=== PATIENT | female | born 1985 | race Caucasian/White ===

== ENCOUNTER 2016-07-31 10:53 | Emergency (ER) | payer BC, OTHER ==
[~2016-07-31] VITALS: Ht 170.2 cm; Wt 140.0 kg
[~2016-07-31 10:53] MED LIST: ACET650S21 PO; CALC200T3 PO; DOCO200C3 PO; ONDA4TAB10 PO; SERT100T PO; SERT25TA PO
[2016-07-31] MEDS ORDERED: IBUPROFEN 200 MG TABLET ONE (11:50)
[2016-07-31] MEDS ORDERED: IBUPROFEN 200 MG TABLET PO ONE (12:00)
[2016-07-31 13:59] VITALS: BP 172/84
== END 2016-07-31 14:01 | disposition home or self-care (01) ==
LOC: ED 11:41
DX: I80.8 Phlebitis and thrombophlebitis of other sites (principal)

== ENCOUNTER 2018-04-11 04:53 | Emergency (ER) | payer BC, OTHER ==
[~2018-04-11] VITALS: Ht 165.1 cm; Wt 134.8 kg
[2018-04-11 04:54] VITALS: BP 128/82
--- NOTE | 2018-04-11 05:04 | NUR ---
PT AMBULATED TO ROOM WITH STEADY GAIT FROM TRIAGE.
--- NOTE | 2018-04-11 05:12 | NUR ---
PROVIDER TO BEDSIDE FOR PT EVAL COMPLETE. PT TO HAVE US TO R LEG. PT REPORTS OUTTER R LEG PAIN SINCE 0000 TONIGHT. PT REPORTS SHE HAD SURGERY X3 WEEKS AGO AND THINKS IT IS A "BLOOD CLOT." NO REDNESS, EDEMA, WARMNESS TO AREA. PT REPORTS PAIN IS ON THE SURFACE OF THE LEG AND IS TENDER TO THE TOUGH. PT A/OX4, BREATHING E/U. PT SO AT BEDSIDE. WILL MONITOR.
--- NOTE | 2018-04-11 05:49 | NUR ---
PT TO US.
--- NOTE | 2018-04-11 06:17 | NUR ---
PT IN ROOM RESTING IN BED, WARM BLANKET PROVIDED PER PT REQUEST. PT DENIES FURTHER NEEDS. WILL CONTINUE TO MONITOR.
--- NOTE | 2018-04-11 06:30 | NUR ---
PROVIDER TO BEDSIDE FOR UPDATE.
== END 2018-04-11 06:37 | disposition home or self-care (01) ==
LOC: ED 05:58
DX: D17.23 Benign lipomatous neoplasm of skin and subcutaneous tissue of right leg (principal); M79.651 Pain in right thigh
CPT/HCPCS: 99284

== ENCOUNTER 2018-11-04 12:15 | Emergency (ER) | payer OTHER ==
[~2018-11-04] VITALS: Ht 170.2 cm; Wt 121.5 kg
[2018-11-04 16:28] VITALS: BP 129/76
== END 2018-11-04 16:30 | disposition home or self-care (01) ==
LOC: ED 15:57
DX: O23.11 Infections of bladder in pregnancy, first trimester (principal); Z3A.08 8 weeks gestation of pregnancy; R11.2 Nausea with vomiting, unspecified
CPT/HCPCS: 36415; 76801; 80053; 81001; 84702; 85025; 87086; 99284

== ENCOUNTER 2019-01-30 09:20 | Inpatient (IN) | payer OTHER ==
[~2019-01-30] VITALS: Ht 165.1 cm; Wt 115.1 kg
[~2019-01-30 09:20] MED LIST changes: +ONDA4TAB7 PO; +PREN1TAB60 PO; +phenergan supp; +zofran
[2019-01-30] MEDS ORDERED: SODIUM CHLORIDE 0.9% 1,000 ML IV ONE (09:40)
[2019-01-30 10:17] LABS: BASOPHILS # (AUTO) 0.02 x10^3/uL (0-0.1); BASOPHILS % (AUTO) 0 % (0-1); EOSINOPHILS # (AUTO) 0.01 x10^3/uL (0-0.4); EOSINOPHILS % (AUTO) 0 % (1-7); LYMPHOCYTES # (AUTO) 1.25 x10^3/uL (1-3.4); LYMPHOCYTES % (AUTO) 16 % (22-44); MD NO; MEAN CORPUSCULAR HEMOGLOBIN 30.2 pg (27.0-34.8); MEAN CORPUSCULAR HGB CONC 33.5 g/dL (32.4-35.8); MEAN CORPUSCULAR VOLUME 90.1 fL (80-100); MEAN PLATELET VOLUME 8.8 fL (7.4-10.4); MONOCYTES # (AUTO) 0.25 x10^3/uL (0.2-0.8); MONOCYTES % (AUTO) 3 % (2-9); NEUTROPHILS # (AUTO) 6.39 x10^3/uL (1.8-6.8); NEUTROPHILS % (AUTO) 81 % (42-75); PLATELET COUNT 218 x10^3/uL (130-400); RED BLOOD COUNT 4.52 x10^6/uL (3.82-5.3); RED CELL DISTRIBUTION WIDTH 15.6 % (9.6-15.2)
[2019-01-30 10:29] LABS: ALBUMIN 2.8 g/dL (3.4-5.0); ANION GAP 10 mmol/L (5-15); CALCIUM 8.4 mg/dL (8.5-10.1); CHLORIDE 110 mmol/L (98-107); CREATININE 0.57 mg/dL (0.55-1.02)
[2019-01-30] MEDS ORDERED: ACETAMINOPHEN 500 MG TABLET PO ONE (10:30)
[2019-01-30] MEDS ORDERED: ONDANSETRON 2MG/ML, 2ML IVPush ONE (10:30)
[2019-01-30] MEDS ORDERED: ONDANSETRON 2MG/ML, 2ML ONE (10:59)
[2019-01-30] MEDS ORDERED: ACETAMINOPHEN 500 MG TABLET ONE (10:59)
--- NOTE | 2019-01-30 11:22 | NUR ---
fhr noted by dopplar 147 bpm
--- NOTE | 2019-01-30 11:29 | NUR ---
PT RESTING ON [facility]. ALL CONCERNS ADRESSED. URINE COLLECTED AND SENT TO LAB. AWAITING RESULTS.
[2019-01-30 11:43] LABS: MICROSCOPIC INDICATED
--- NOTE | 2019-01-30 11:49 | NUR ---
Dr Henderson to bedside to update pt on POC.
[2019-01-30 11:57] LABS: CULTURE INDICATED? YES
[2019-01-30] MEDS ORDERED: LACTATED RINGERS 1,000 ML IV SCH (13:00)
[2019-01-30] MEDS ORDERED: ONDANSETRON 2MG/ML, 2ML IVPush PRN (13:00)
[2019-01-30] MEDS ORDERED: METOCLOPRAMIDE 5 MG/ML, 2ML IVPush PRN (13:00)
--- NOTE | 2019-01-30 13:36 | NUR ---
report to floor RN
[2019-01-30 15:10] VITALS: BP 130/77
[2019-01-30 19:17] VITALS: BP 104/69
[2019-01-30] MEDS ORDERED: D5%-LACTATED RINGERS 1,000 ML IV ONE (21:00)
[2019-01-30] MEDS: ACETAMINOPHEN 325 MG TABLET PO PRN (21:49)
[2019-01-30] MEDS: FAMOTIDINE 20 MG/2 ML IVPush SCH (21:49)
[2019-01-30] MEDS: METOCLOPRAMIDE 5 MG/ML, 2ML IVPush SCH (23:03)
[2019-01-31] MEDS: ONDANSETRON 2MG/ML, 2ML IVPush SCH ×4 (01:02→19:49)
[2019-01-31] MEDS: D5%-LACTATED RINGERS 1,000 ML IV SCH ×4 (01:03→21:30)
[2019-01-31 02:44] VITALS: BP 107/74
[2019-01-31] MEDS: METOCLOPRAMIDE 5 MG/ML, 2ML IVPush SCH ×4 (04:26→22:46)
[2019-01-31 06:59] VITALS: BP 100/66
[2019-01-31] MEDS: ACETAMINOPHEN 325 MG TABLET PO PRN (07:59)
[2019-01-31] MEDS: FAMOTIDINE 20 MG/2 ML IVPush SCH (08:41)
[2019-01-31 12:45] VITALS: BP 116/74
[2019-01-31 18:42] VITALS: BP 95/66
[2019-01-31] MEDS: FAMOTIDINE 20 MG TABLET PO SCH (21:29)
[2019-01-31 22:45] VITALS: BP 117/77
[2019-02-01] MEDS: ONDANSETRON 2MG/ML, 2ML IVPush SCH ×2 (01:42→08:01)
[2019-02-01 02:04] VITALS: BP 92/61
[2019-02-01] MEDS: D5%-LACTATED RINGERS 1,000 ML IV SCH (04:13)
[2019-02-01 04:18] VITALS: BP 107/76
[2019-02-01] MEDS: METOCLOPRAMIDE 5 MG/ML, 2ML IVPush SCH (04:20)
[2019-02-01] MEDS: ACETAMINOPHEN 325 MG TABLET PO PRN ×2 (04:30→11:46)
[2019-02-01 06:50] VITALS: BP 118/79
[2019-02-01] MEDS: FAMOTIDINE 20 MG TABLET PO SCH (08:12)
[2019-02-01] MEDS ORDERED: FAMOTIDINE 20 MG TABLET PO SCH (11:00)
[2019-02-01] MEDS: METOCLOPRAMIDE 10MG TABLET PO SCH ×2 (11:46→16:56)
[2019-02-01 12:45] VITALS: BP 138/79
[2019-02-01] MEDS ORDERED: ONDANSETRON 4 MG TABLET PO SCH (14:00)
[2019-02-01] MEDS ORDERED: SODIUM CHLORIDE FLUSH 10ML SYR IVF SCH (21:00)
== END 2019-02-01 18:11 | disposition home or self-care (01) | DRG 832 ==
LOC: ED 10:41 → EDIP 12:57 → 3N 13:21
PROVIDERS: ADMIT Obstetrics & Gynecology Maternal & Fetal Medicine; ATTEND Obstetrics & Gynecology Maternal & Fetal Medicine
DX: O21.0 Mild hyperemesis gravidarum (principal); Z68.41 Body mass index [BMI] 40.0-44.9, adult; J45.909 Unspecified asthma, uncomplicated; E86.0 Dehydration; O99.282 Endocrine, nutritional and metabolic diseases complicating pregnancy, second trimester; O99.512 Diseases of the respiratory system complicating pregnancy, second trimester; Z80.9 Family history of malignant neoplasm, unspecified; Z82.49 Family history of ischemic heart disease and other diseases of the circulatory system; Z85.828 Personal history of other malignant neoplasm of skin; Z86.72 Personal history of thrombophlebitis; Z90.49 Acquired absence of other specified parts of digestive tract; Z88.0 Allergy status to penicillin; Z88.8 Allergy status to other drugs, medicaments and biological substances; Z3A.19 19 weeks gestation of pregnancy
CPT/HCPCS: 36415; 96361; 96374; 96375; 99285; J3490; J7121; 80048; 81001; 82040; 84702; 85025; 87086; 93005; G0378; J2405; Q0162; J2765; J7030; J7120

== ENCOUNTER 2019-04-17 13:38 | Outpatient (CLI) | payer OTHER ==
[~2019-04-17] VITALS: Ht 165.1 cm; Wt 113.1 kg
[2019-04-17 14:30] VITALS: BP 123/64
[2019-04-17 15:26] LABS: MICROSCOPIC INDICATED
== END 2019-04-17 16:13 | disposition home or self-care (01) ==
LOC: LDOP 13:38
PROVIDERS: ATTEND Obstetrics & Gynecology
DX: O26.893 Other specified pregnancy related conditions, third trimester (principal); Z3A.30 30 weeks gestation of pregnancy
CPT/HCPCS: 59025; 81001; 82962; 87086; 99201; G0463

== ENCOUNTER 2019-04-27 16:16 | Outpatient (CLI) | payer OTHER ==
[~2019-04-27] VITALS: Ht 165.1 cm; Wt 115.0 kg
[2019-04-27 16:29] VITALS: BP 132/68
== END 2019-04-27 19:23 | disposition home or self-care (01) ==
LOC: LDOP 16:16
PROVIDERS: ATTEND Obstetrics & Gynecology
DX: O26.893 Other specified pregnancy related conditions, third trimester (principal); E16.2 Hypoglycemia, unspecified; Z3A.31 31 weeks gestation of pregnancy
CPT/HCPCS: 59025; 76819; 82962; 99211; G0463

== ENCOUNTER 2019-05-05 16:31 | Outpatient (CLI) | payer OTHER ==
[~2019-05-05] VITALS: Ht 165.1 cm; Wt 113.6 kg
[2019-05-05 17:16] LABS: MICROSCOPIC NOT IND
== END 2019-05-05 18:13 | disposition home or self-care (01) ==
LOC: LDOP 16:31
PROVIDERS: ATTEND Obstetrics & Gynecology
DX: O42.913 Preterm premature rupture of membranes, unspecified as to length of time between rupture and onset of labor, third trimester (principal); Z3A.37 37 weeks gestation of pregnancy
CPT/HCPCS: 59025; 81003; 87086; 89060; 99211; G0463; Q0114

== ENCOUNTER 2019-05-19 09:45 | Outpatient (CLI) | payer OTHER ==
[~2019-05-19] VITALS: Ht 165.1 cm; Wt 115.5 kg
[2019-05-19 10:13] VITALS: BP 95/59
[2019-05-19 11:16] LABS: MICROSCOPIC INDICATED
== END 2019-05-19 12:15 | disposition home or self-care (01) ==
LOC: LDOP 09:45
PROVIDERS: ATTEND Obstetrics & Gynecology
DX: O26.893 Other specified pregnancy related conditions, third trimester (principal); R10.9 Unspecified abdominal pain; Z3A.34 34 weeks gestation of pregnancy
CPT/HCPCS: 59025; 81001; 87086; 99211; G0463

== ENCOUNTER 2019-05-31 15:04 | Outpatient (CLI) | payer OTHER ==
[~2019-05-31] VITALS: Ht 165.1 cm; Wt 113.6 kg
[2019-05-31 15:50] VITALS: BP 106/57
[2019-05-31 16:17] LABS: MICROSCOPIC INDICATED
[2019-06-13] MEDS ORDERED: IBUP-1222 PO (08:13)
== END 2019-05-31 19:25 | disposition home or self-care (01) ==
LOC: LDOP 15:04
PROVIDERS: ATTEND Obstetrics & Gynecology
DX: O26.893 Other specified pregnancy related conditions, third trimester (principal); R10.9 Unspecified abdominal pain; Z3A.36 36 weeks gestation of pregnancy
CPT/HCPCS: 59025; 81001; 99211; G0463